=== PATIENT | female | born 1970 | race American Indian/Alaskan Native ===

== ENCOUNTER 2017-03-27 16:29 | Emergency (ER) | payer OTHER ==
[2017-03-27 16:59] VITALS: BP 157/72; PULSE 87; RESP 16; TEMP 98.1; O2SAT 97
--- NOTE | 2017-03-27 17:32 | ED PDOC ---
HPI: Skin/Bite Injury Time Seen by Provider: 03/27/17 17:03 Chief Complaint (Nursing): Abnormal Skin Integrity Chief Complaint (Provider): Left ankle pain History Per: Patient History/Exam Limitations: no limitations Onset/Duration Of Symptoms: Days (x1) Location Of Injury: Left: Ankle (bug bite) Quality Of Symptoms: Itching Additional Complaint(s): Kamala Gross is a 47 year old female, with no past medical history, who presents to the emergency department complaining of left ankle pain associated with a bug bite onset since yesterday. Patient reports she went to work and began feeling itchy and discomfort in her left ankle. She states feeling some chills but denies any nausea and vomit. PMD: Demetrius Flynn Past Medical History Reviewed: Historical Data, Nursing Documentation, Vital Signs Vital Signs: Last Vital Signs Temp 98.1 F 03/27/17 16:55 Pulse 87 03/27/17 16:55 Resp 16 03/27/17 16:55 BP 157/72 H 03/27/17 16:55 Pulse Ox 97 03/27/17 17:45 - Medical History PMH: No Chronic Diseases - Family History Family History: States: Unknown Family Hx - Home Medications Home Medications: Ambulatory Orders Medication Instructions Recorded Calamine/Pramoxine [Caladryl] 180 ml TP DAILY #1 bottle 03/27/17 Mupirocin [Centany] 1 - 2 gm TP DAILY #30 gm 03/27/17 - Allergies Allergies/Adverse Reactions: Allergies Allergy/AdvReac Type Severity Reaction Status Date / Time No Known Allergies Allergy Verified 03/27/17 16:55 Review of Systems ROS Statement: Except As Marked, All Systems Reviewed And Found Negative Constitutional: Positive for: Chills Gastrointestinal: Negative for: Nausea, Vomiting Musculoskeletal: Positive for: Foot Pain (left ankle) Skin: Positive for: Lesions (bug bite in left ankle) Physical Exam - Reviewed Nursing Documentation Reviewed: Yes Vital Signs Reviewed: Yes - Physical Exam Appears: Positive for: Well, Non-toxic, No Acute Distress Head Exam: Positive for: ATRAUMATIC, NORMAL INSPECTION, NORMOCEPHALIC Skin: Positive for: Normal Color, Warm, Dry Eye Exam: Positive for: EOMI, Normal appearance, PERRL Cardiovascular/Chest: Positive for: Regular Rate, Rhythm Respiratory: Positive for: CNT, Normal Breath Sounds Gastrointestinal/Abdominal: Positive for: Normal Exam, Bowel Sounds, Soft Extremity: Positive for: Other (mild erythema, non tender, no drainage, no swelling around nodular lesion) Neurologic/Psych: Positive for: Alert, Oriented - ECG O2 Sat by Pulse Oximetry: 97 (RA) Pulse Ox Interpretation: Normal Medical Decision Making Medical Decision Making: Initial Impression: Bug bite Initial Plan: Scribe Attestation: Documented by Jagdish Cardona, acting as a scribe for Terri GONZALEZ. Provider Scribe Attestation: All medical record entries made by the Scribe were at my direction and personally dictated by me. I have reviewed the chart and agree that the record accurately reflects my personal performance of the history, physical exam, medical decision making, and the department course for this patient. I have also personally directed, reviewed, and agree with the discharge instructions and disposition. Disposition - Clinical Impression Clinical Impression: Bug bite - Disposition Disposition Time: 19:47 Condition: GOOD Prescriptions: Calamine/Pramoxine [Caladryl] 180 ml TP DAILY #1 bottle Mupirocin [Centany] 1 - 2 gm TP DAILY #30 gm Instructions: Insect Bite or Sting (ED) Forms: [employer] ([place]an)
== END 2017-03-27 17:45 | disposition home or self-care (01) ==
LOC: H.ER 16:29
DX: T14.8 Other injury of unspecified body region (principal); W57.XXXA Bitten or stung by nonvenomous insect and other nonvenomous arthropods, initial encounter; Y92.89 Other specified places as the place of occurrence of the external cause

== ENCOUNTER 2017-05-12 11:00 | Emergency (ER) | payer OTHER ==
[2017-05-12 11:06] VITALS: BP 124/56; PULSE 97; TEMP 97; O2SAT 96; BMI 23.4
--- NOTE | 2017-05-12 11:37 | ED PDOC ---
HPI: CCC, URI, Sore Throat Time Seen by Provider: 05/12/17 11:04 Chief Complaint (Provider): Sore throat, hoarse voice, cough - No fever History Per: Patient History/Exam Limitations: no limitations Have you had recent travel within the past 21 days to any of the following countries: [place], [place], [place] or [place]?: No Onset/Duration Of Symptoms: Days (2) Current Symptoms Are (Timing): Still Present Location Of Pain: Throat. denies: Ear(s), Diffuse Myalgias Sick Contacts (Context): None Associated Symptoms: Sore Throat (x 2 days ), Cough (1 day), Sinus Drainage ( Clear x 2 days ). denies: Fever, Chills, Sputum Ear Symptoms: Bilateral: None Severity: None Additional Complaint(s): Pt taking OTC cough drops and drinking lots of water. Past Medical History Reviewed: Historical Data, Nursing Documentation, Vital Signs Vital Signs: Last Vital Signs Temp 97 F L 05/12/17 11:05 Pulse 97 H 05/12/17 11:05 Resp BP 124/56 L 05/12/17 11:05 Pulse Ox 96 05/12/17 11:37 - Medical History PMH: Asthma (as a child ) - Surgical History Surgical History: No Surg Hx - Family History Family History: States: Unknown Family Hx - Living Arrangements Living Arrangements: With Family - Social History Current smoker - smoking cessation education provided: No Alcohol: None Drugs: Denies - Home Medications Home Medications: Ambulatory Orders Medication Instructions Recorded Calamine/Pramoxine [Caladryl] 180 ml TP DAILY #1 bottle 03/27/17 Mupirocin [Centany] 1 - 2 gm TP DAILY #30 gm 03/27/17 Prednisone 50 mg PO ONCE #2 tablet 05/12/17 - Allergies Allergies/Adverse Reactions: Allergies Allergy/AdvReac Type Severity Reaction Status Date / Time No Known Allergies Allergy Verified 03/27/17 16:55 Review of Systems ROS Statement: Except As Marked, All Systems Reviewed And Found Negative Constitutional: Negative for: Fever, Chills ENT: Positive for: Nose Congestion, Throat Pain. Negative for: Ear Pain Cardiovascular: Negative for: Chest Pain Respiratory: Positive for: Cough. Negative for: Shortness of Breath Musculoskeletal: Negative for: Neck Pain Skin: Negative for: Rash, Lesions Neurological: Negative for: Weakness, Headache Physical Exam - Reviewed Nursing Documentation Reviewed: Yes Vital Signs Reviewed: Yes - Physical Exam Appears: Positive for: Well, Non-toxic, No Acute Distress Head Exam: Positive for: ATRAUMATIC, NORMAL INSPECTION, NORMOCEPHALIC Skin: Positive for: Normal Color, Warm, DRY Eye Exam: Positive for: Normal appearance ENT: Positive for: Normal ENT Inspection Neck: Positive for: Normal, Painless ROM Cardiovascular/Chest: Positive for: Regular Rate, Rhythm Respiratory: Positive for: CNT, Normal Breath Sounds Back: Positive for: Normal Inspection Extremity: Positive for: Normal ROM Neurologic/Psych: Positive for: Alert, Oriented - ECG O2 Sat by Pulse Oximetry: 96 Medical Decision Making Medical Decision Making: Strep (-) Disposition - Clinical Impression Clinical Impression: Laryngitis - Patient ED Disposition Is Patient to be Admitted: No Counseled Patient/Family Regarding: Diagnosis, Need For Followup, Rx Given - Disposition Referrals: [facility] [Outside] Disposition: Routine/Home Disposition Time: 13:41 Condition: GOOD Prescriptions: Prednisone 50 mg PO ONCE #2 tablet Instructions: Viral Syndrome (ED)
== END 2017-05-12 14:05 | disposition home or self-care (01) ==
LOC: H.ER 11:00
DX: J04.0 Acute laryngitis (principal)

== ENCOUNTER 2018-04-23 07:24 | Emergency (ER) | payer MEDICAID, OTHER ==
[2018-04-23 07:41] VITALS: BP 105/71; PULSE 65; RESP 20; TEMP 97; O2SAT 98; BMI 24.1
[2018-04-23 09:15] LABS: EOS # 0.3 K/uL (0.0-0.7); EOS % 7.2 % (0.0-4.0); HEMOGLOBIN 9.1 g/dL (12.0-16.0); LYMPH # 0.9 K/uL (1.0-4.3); LYMPH % 22.3 % (20.0-40.0); MEAN CELL VOLUME 76.9 fl (81.0-99.0); MEAN CORPUSCULAR HEMOGLOBIN 24.3 pg (27.0-31.0); MEAN CORPUSCULAR HGB CONC 31.6 g/dL (33.0-37.0); MEAN PLATELET VOLUME 7.7 fl (7.2-11.7); MONO # 0.6 K/uL (0.0-0.8); NEUT # 2.2 K/uL (1.8-7.0); NEUT % 55.5 % (50.0-75.0); RBC 3.75 Mil/uL (3.80-5.20); RED CELL DISTRIBUTION WIDTH 14.6 % (11.5-14.5); WHITE BLOOD COUNT 4.1 K/uL (4.8-10.8)
[2018-04-23 09:28] LABS: BLOOD UREA NITROGEN 5 mg/dl (7-17); CALCIUM 9.1 mg/dL (8.4-10.2); GFR NON-AFRICAN AMERICAN > 60
[2018-04-23 09:36] LABS: B-TYPE NATRIURETIC PEPTIDE 130 pg/ml (0-900)
--- NOTE | 2018-04-23 11:01 | CARD ---
APPROVED REPORT Date of service: 04/23/2018 EKG Measurement Heart [id number] <Conclusion> Sinus bradycardia NT wave abnormality abnormal ECG
--- NOTE | 2018-04-23 15:17 | ED PDOC ---
Lower Extremity Pain/Injury Time Seen by Provider: 04/23/18 08:12 Chief Complaint (Nursing): Lower Extremity Problem/Injury Chief Complaint (Provider): Leg Swelling History Per: Patient History/Exam Limitations: no limitations Current Symptoms Are (Timing): Still Present Additional Complaint(s): 48 year old female presents to the ED complaining of bilateral leg swelling for a couple of days. Patient state the right leg has more swelling and pain than the left leg. Denies CP, SOB, fever, nausea, vomiting, and diarrhea. Patient indicates no injury associated with the legs. PMD: Homa Perez Past Medical History Reviewed: Historical Data, Nursing Documentation, Vital Signs Vital Signs: Last Vital Signs Temp 97 F L 04/23/18 07:40 Pulse 65 04/23/18 07:40 Resp 20 04/23/18 07:40 BP 105/71 04/23/18 07:40 Pulse Ox 98 04/23/18 07:40 - Medical History PMH: Anemia, Asthma (as a child ) - Surgical History Surgical History: No Surg Hx - Family History Family History: States: Unknown Family Hx - Home Medications Home Medications: Ambulatory Orders Medication Instructions Recorded Calamine/Pramoxine [Caladryl] 180 ml TP DAILY #1 bottle 03/27/17 Mupirocin [Centany] 1 - 2 gm TP DAILY #30 gm 03/27/17 Prednisone 50 mg PO ONCE #2 tablet 05/12/17 - Allergies Allergies/Adverse Reactions: Allergies Allergy/AdvReac Type Severity Reaction Status Date / Time No Known Allergies Allergy Verified 03/27/17 16:55 Review of Systems ROS Statement: Except As Marked, All Systems Reviewed And Found Negative Constitutional: Negative for: Fever Cardiovascular: Negative for: Chest Pain Respiratory: Negative for: Shortness of Breath Gastrointestinal: Negative for: Nausea, Vomiting, Diarrhea Musculoskeletal: Positive for: Other (Bilateral leg swelling) Physical Exam - Reviewed Nursing Documentation Reviewed: Yes Vital Signs Reviewed: Yes - Physical Exam Appears: Positive for: Non-toxic, No Acute Distress Head Exam: Positive for: ATRAUMATIC, NORMAL INSPECTION, NORMOCEPHALIC Skin: Positive for: Normal Color, Warm, Dry Eye Exam: Positive for: Normal appearance ENT: Positive for: Normal ENT Inspection Neck: Positive for: Normal, Painless ROM Cardiovascular/Chest: Positive for: Regular Rate, Rhythm. Negative for: Murmur Respiratory: Positive for: Normal Breath Sounds. Negative for: Wheezing, Respiratory Distress Gastrointestinal/Abdominal: Positive for: Normal Exam, Soft. Negative for: Tenderness Extremity: Positive for: Normal ROM, Other (Mild edema of left lower leg and right lower leg with right leg more than left. No tenderness.) Neurologic/Psych: Positive for: Alert, Oriented. Negative for: Motor/Sensory Deficits - Laboratory Results Result Diagrams: 04/23/18 09:08 04/23/18 09:08 - ECG O2 Sat by Pulse Oximetry: 98 (RA) Pulse Ox Interpretation: Normal Medical Decision Making Medical Decision Making: Initial Impression: Bilateral leg edema Differentials include DVT CHF, renal failure Initial Plan: --ECG --B type natriuretic peptide --BMP --CBC --Duplex lower extremity US Patient refuses the doppler study at this time. 11:18 This patient is choosing to leave against medical advice. I have personally explained to the pt that choosing to do so may result in permanent bodily harm or . I have discussed at great length that without further evaluation and monitoring there may be unforeseen circumstances and/or deterioration causing permanent bodily harm or as a result of their choice. The pt verbalized these risks back to the physician in laymans terms. The pt is alert, oriented, and shows the mental capacity to make clear decisions regarding the pts health care at this time. The pt continues to wish to leave against medical advice. In light of the pts decision to leave AMA, follow-up has been arranged and the pt is aware of the importance of following up as instructed. The pt has been advised that they should return to the ED immediately if they change their mind at any time, or if their condition begins to change or worsen in any way. Scribe Attestation: Documented by Leonard Liang acting as a scribe for Zina Copeland MD. Provider Scribe Attestation: All medical record entries made by the Scribe were at my direction and personally dictated by me. I have reviewed the chart and agree that the record accurately reflects my personal performance of the history, physical exam, medical decision making, and the department course for this patient. I have also personally directed, reviewed, and agree with the discharge instructions and disposition. Disposition - Clinical Impression Clinical Impression: Leg swelling, Left against medical advice, Iron deficiency anemia - Disposition Referrals: [facility] [Outside] Disposition Time: 11:18 Condition: GOOD Additional Instructions: You decided to leave again medical advice. Return for worsening. Follow up with your PCP in 2-3 days. Instructions: Anemia Caused by Low Iron, Adult (DC), Dependent Edema (DC), Leaving Against Medical Advice Forms: [employer] (Greenlandic)
== END 2018-04-23 10:40 | disposition left against medical advice (07) ==
LOC: H.ER 07:24
DX: D50.9 Iron deficiency anemia, unspecified (principal); M79.89 Other specified soft tissue disorders; J45.909 Unspecified asthma, uncomplicated

== ENCOUNTER 2018-06-11 21:24 | Emergency (ER) | payer MEDICAID ==
[2018-06-11 21:24] VITALS: BMI 24.1
[2018-06-11 21:31] VITALS: BP 120/83; PULSE 82; RESP 16; TEMP 98.1; O2SAT 100
[2018-06-11 23:10] LABS: BASO % 0.3 % (0.0-2.0); EOS # 0.1 K/uL (0.0-0.7); EOS % 2.1 % (0.0-4.0); HEMOGLOBIN 8.9 g/dL (12.0-16.0); LYMPH # 1.7 K/uL (1.0-4.3); LYMPH % 32.6 % (20.0-40.0); MEAN CELL VOLUME 71.8 fl (81.0-99.0); MEAN CORPUSCULAR HEMOGLOBIN 22.5 pg (27.0-31.0); MEAN CORPUSCULAR HGB CONC 31.3 g/dL (33.0-37.0); MEAN PLATELET VOLUME 7.2 fl (7.2-11.7); MONO # 0.5 K/uL (0.0-0.8); MONO % 9.2 % (0.0-10.0); NEUT # 2.8 K/uL (1.8-7.0); NEUT % 55.8 % (50.0-75.0); RBC 3.95 Mil/uL (3.80-5.20); RED CELL DISTRIBUTION WIDTH 15.5 % (11.5-14.5); WHITE BLOOD COUNT 5.1 K/uL (4.8-10.8)
[2018-06-11 23:19] LABS: ALB/GLOB RATIO 1.1 (1.0-2.1); ALBUMIN 4.1 g/dL (3.5-5.0); ALT/SGPT 33 U/L (9-52); AST/SGOT 41 U/L (14-36); BLOOD UREA NITROGEN 13 mg/dl (7-17); CALCIUM 9.7 mg/dL (8.4-10.2); GFR NON-AFRICAN AMERICAN > 60
[2018-06-11 23:34] LABS: B-TYPE NATRIURETIC PEPTIDE 21.3 pg/ml (0-900)
--- NOTE | 2018-06-12 00:02 | ED PDOC ---
Lower Extremity Pain/Injury Time Seen by Provider: 06/11/18 22:10 Chief Complaint (Nursing): Lower Extremity Problem/Injury History Per: Patient History/Exam Limitations: no limitations Additional Complaint(s): 48 y/o female with PMH of anemia presents to the ED c/o intermittent right leg swelling and pain x 1.5 months. Pt describes right calf swelling and pain associated with right foot pain, worse when she walks long distances. Pt was seen here for the same complaint on 04/23/18 and left AMA before she received any testing. No recent travel, immobilization, surgery, or estrogen use. No history of DVT/PE. Pt has not taken any medication for pain. Pt [place] [facility] [place] [facility] currently. LMP 05/19/18.Denies trauma, fever, chills, SOB, chest pain, hemoptysis, left calf pain/swelling, palpitations, syncope, abdominal pain, N/V, back pain, numbness, paresthesias. Past Medical History Reviewed: Historical Data, Nursing Documentation, Vital Signs Vital Signs: Last Vital Signs Temp 98.1 F 06/11/18 21:29 Pulse 82 06/11/18 21:29 Resp 16 06/11/18 21:29 BP 120/83 06/11/18 21:29 Pulse Ox 100 06/11/18 21:29 - Medical History PMH: Anemia, Asthma (as a child ) Denies: Chronic Kidney Disease - Family History Family History: States: Unknown Family Hx - Home Medications Home Medications: Ambulatory Orders Medication Instructions Recorded Calamine/Pramoxine [Caladryl] 180 ml TP DAILY #1 bottle 03/27/17 Mupirocin [Centany] 1 - 2 gm TP DAILY #30 gm 03/27/17 Prednisone 50 mg PO ONCE #2 tablet 05/12/17 Ferrous Sulfate, Dried [Iron] 160 mg PO DAILY #30 tablet.er 06/12/18 - Allergies Allergies/Adverse Reactions: Allergies Allergy/AdvReac Type Severity Reaction Status Date / Time No Known Allergies Allergy Verified 06/11/18 21:29 Wells Criteria for PE - Wells Criteria for Pulmonary Embolism Clinical Signs and Symptoms of DVT: Yes P.E is #1 Diagnosis, or Equally Likely: No Heart Rate >100: No Immobilization at least 3 days;Surgery previous 4 weeks: No Previous, objectively diagnosed PE or DVT: No Hemoptysis: No Malignancy w/treatment within 6 months, or palliative: No Total Score: 3 Review of Systems ROS Statement: Except As Marked, All Systems Reviewed And Found Negative Constitutional: Negative for: Fever, Chills Eyes: Negative for: Vision Change Cardiovascular: Negative for: Chest Pain, Palpitations, Light Headedness Respiratory: Negative for: Cough, Shortness of Breath, Hemoptysis Gastrointestinal: Negative for: Nausea, Vomiting, Abdominal Pain, Diarrhea, Constipation, Melena, Hematochezia, Hematemesis, Rectal Pain Genitourinary Female: Negative for: Dysuria, Frequency, Incontinence Musculoskeletal: Positive for: Leg Pain (right calf swelling and pain; right foot pain). Negative for: Neck Pain, Shoulder Pain, Arm Pain, Back Pain, Hand Pain Skin: Negative for: Rash, Lesions, Bruising Neurological: Negative for: Weakness, Numbness, Incoordination, Headache, Dizziness Physical Exam - Reviewed Nursing Documentation Reviewed: Yes Vital Signs Reviewed: Yes - Physical Exam Appears: Positive for: Well, Non-toxic, No Acute Distress Head Exam: Positive for: ATRAUMATIC, NORMAL INSPECTION, NORMOCEPHALIC Skin: Positive for: Normal Color, Warm. Negative for: Rash Eye Exam: Positive for: EOMI, Normal appearance, PERRL Neck: Positive for: Normal, Painless ROM Cardiovascular/Chest: Positive for: Regular Rate, Rhythm Respiratory: Positive for: Normal Breath Sounds. Negative for: Rales Pulses-Dorsalis Pedis (L): 2+ Pulses-Dorsalis Pedis (R): 2+ Pulses-Radial (L): 2+ Pulses-Radial (R): 2+ Back: Positive for: Normal Inspection. Negative for: Vertebral Tenderness Extremity: Positive for: Normal ROM, Tenderness (mild over medial heel), Capillary Refill (<2s), Swelling (mild right ankle). Negative for: Pedal Edema, Calf Tenderness, Deformity Neurologic/Psych: Positive for: Alert, Oriented, Gait (steady, no difficulty). Negative for: Motor/Sensory Deficits - Laboratory Results Result Diagrams: 06/11/18 23:05 06/11/18 23:05 - ECG O2 Sat by Pulse Oximetry: 100 Medical Decision Making Medical Decision Making: Will complete workup from prior visit when pt left AMA, as she is presenting with the same complaints. Initial Plan: * Right leg venous duplex * CBC, CMP * BNP * EH bandage Right leg venous duplex: negative for DVT CMP, BNP: wnl CBC: significant for hemoglobin of 8.9 * discussed with Dr. Porras, recommends daily iron supplements as pt denies any symptoms of GI bleed and has history of anemia. * will give daily iron supplements Diagnostic testing results and importance of followup discussed with pt. Pt agrees and understands. Pt stable for discharge home. Impression: Chronic Leg Pain Plan: * Iron supplements * RICE * Orthopedic followup * Clinic followup * Return for new/worsening symptoms Disposition - Clinical Impression Clinical Impression: Leg pain - Patient ED Disposition Is Patient to be Admitted: No Discussed With DrEh: Gissel Porras (Recommended to discharge pt with iron supplements, followup with primary doctor. ) - Disposition Referrals: [facility] [Outside] Disposition: Routine/Home Disposition Time: 11:45 Condition: GOOD Additional Instructions: Take iron once daily x 1 month Keep legs elevated while resting Keep foot compressed in EH bandage Followup with primary doctor within 2 days Return to ED if symptoms persist or worsen Prescriptions: Ferrous Sulfate, Dried [Iron] 160 mg PO DAILY #30 tablet.er Instructions: Muscle and Bone Pain (DC) Forms: [employer] (Bur[place]ian)
--- NOTE | 2018-06-12 11:48 | US ---
Date of service: 06/11/2018 PROCEDURE: Right lower extremity venous duplex Doppler. HISTORY: lower leg swelling and pain COMPARISON: None available. TECHNIQUE: Common femoral, superficial femoral, popliteal and posterior tibial veins were evaluated. Flow was assessed with color Doppler, compressibility, assessment of phasic flow and augmentation response. FINDINGS: COMMON FEMORAL VEIN: Unremarkable. SUPERFICIAL FEMORAL VEIN: Unremarkable. POPLITEAL VEIN: Unremarkable. POSTERIOR TIBIAL VEIN: Unremarkable. OTHER FINDINGS: None. IMPRESSION: No evidence of deep venous thrombosis in the right lower extremity. Preliminary impression was provided by [facility].
== END 2018-06-12 00:17 | disposition home or self-care (01) ==
LOC: H.ER 21:24
DX: M79.604 Pain in right leg (principal); R60.0 Localized edema; D64.9 Anemia, unspecified